=== PATIENT | male | born 1955 | race American Indian/Alaskan Native ===

== ENCOUNTER 2019-01-05 19:37 | Inpatient (IN) | payer MEDICARE, MEDICAID ==
[2019-01-05 19:48] VITALS: BMI 22.3
[2019-01-05] MEDS ORDERED: Sodium Chloride 0.9% 500 ML IV ONE (19:50)
[2019-01-05] MEDS ORDERED: Sodium Chloride 0.9% 1,000 ML IV ONE (19:51)
--- NOTE | 2019-01-05 19:56 | C.PDOC ---
History Of Present Illness 63 year old male sent in for abnormal blood work and increased BUN and creatinine. Denies pain, SOB, or complaints at this time. Time Seen by Provider: 01/05/19 19:53 Chief Complaint (Nursing): Abnormal Labs History Per: Patient History/Exam Limitations: no limitations Onset/Duration Of Symptoms: Hrs Current Symptoms Are (Timing): Still Present Recent travel outside of the [place]: No Past Medical History Reviewed: Historical Data, Nursing Documentation, Vital Signs Vital Signs: Last Vital Signs Temp 97.5 F L 01/05/19 19:45 Pulse 74 01/05/19 19:45 Resp 18 01/05/19 19:45 BP 104/39 L 01/05/19 19:45 Pulse Ox 100 01/05/19 19:45 Primary Care Provider: Arron Nathan - Medical History PMH: CHF, Depression, Diabetes, HTN, Chronic Kidney Disease, Schizophrenia Family History: States: Unknown Family Hx - Social History Hx Tobacco Use: No Hx Alcohol Use: No Hx Substance Use: No - Immunization History Hx Tetanus Toxoid Vaccination: No Hx Influenza Vaccination: No (unknown) Hx Pneumococcal Vaccination: No (unknown) Review Of Systems Constitutional: Negative for: Fever, Chills Cardiovascular: Negative for: Chest Pain, Palpitations Respiratory: Negative for: Cough, Shortness of Breath Gastrointestinal: Negative for: Nausea, Vomiting Neurological: Negative for: Weakness, Numbness Physical Exam - Physical Exam Appears: Non-toxic Skin: Normal Color, Warm Head: Atraumatic, Normacephalic Eye(s): bilateral: Other (Legally blind) Oral Mucosa: Dry Neck: Normal, Supple Chest: Symmetrical, No Tenderness Cardiovascular: Rhythm Regular Respiratory: Normal Breath Sounds, No Rales, No Rhonchi, No Wheezing Gastrointestinal/Abdominal: Soft, No Tenderness Extremity: No Pedal Edema Neurological/Psych: Oriented x3, Normal Speech, Other (Tremor to upper extremities) ED Course And Treatment - Laboratory Results Result Diagrams: 01/05/19 20:13 01/05/19 20:13 ECG: Interpreted By Me, Viewed By Me ECG Rhythm: Sinus Rhythm, 1st Degree HB ECG Interpretation: Normal, No Acute Changes Interpretation Of ECG: Sinus rhythm with 1st degree av block, otherwise normal tracings. Rate From EC O2 Sat by Pulse Oximetry: 100 (Room air) Pulse Ox Interpretation: Normal - Radiology CXR: Interpreted by Me, Viewed By Me CXR Interpretation: Yes: No Acute Disease. No: Infiltrates Progress Note: EKG, blood work, CXR, and urinalysis ordered. IV fluids administered. Disposition Discussed With : Arron Nathan Doctor Will See Patient In The: Hospital Counseled Patient/Family Regarding: Diagnosis - Disposition Disposition: HOSPITALIZED Disposition Time: 21:06 Condition: STABLE Forms: [employer] (Lebanese) - POA Present On Arrival: None - Clinical Impression Clinical Impression: Hyperkalemia, Renal failure - Scribe Statement The provider has reviewed the documentation as recorded by the Scribe Nicholas Ritchie All medical record entries made by the Scribe were at my direction and personally dictated by me. I have reviewed the chart and agree that the record accurately reflects my personal performance of the history, physical exam, medical decision making, and the department course for this patient. I have also personally directed, reviewed, and agree with the discharge instructions and disposition.
[2019-01-05 20:17] LABS: BASO % 0.7 % (0.0-2.0); EOS # 0.2 K/uL (0.0-0.7); EOS % 4.7 % (0.0-4.0); HEMOGLOBIN 8.5 g/dL (12.0-18.0); MEAN CELL VOLUME 84.2 fL (80.0-94.0); MEAN CORPUSCULAR HGB CONC 33.3 g/dL (33.0-37.0); MEAN PLATELET VOLUME 6.9 fL (7.2-11.7); MONO # 0.2 K/uL (0.0-0.8); MONO % 6.2 % (0.0-10.0); NEUT # 1.9 K/uL (1.8-7.0); NEUT % 57.4 % (50.0-75.0); NRBC % 0.1 % (0.0-2.0); RBC 3.05 Mil/uL (4.40-5.90); RED CELL DISTRIBUTION WIDTH 16.2 % (11.5-14.5); WHITE BLOOD COUNT 3.2 K/uL (4.8-10.8)
[2019-01-05 20:41] LABS: B-TYPE NATRIURETIC PEPTIDE 4100 pg/mL (0-900)
[2019-01-05 20:43] LABS: ALB/GLOB RATIO 1.2 (1.0-2.1); ALBUMIN 4.1 g/dL (3.5-5.0); ALT/SGPT 22 U/L (21-72); AST/SGOT 20 U/L (17-59); BLOOD UREA NITROGEN 91 mg/dL (9-20); CALCIUM 9.5 mg/dl (8.6-10.4); GFR NON-AFRICAN AMERICAN 12
[2019-01-05] MEDS ORDERED: Dextrose 50% SYRINGE Inj (50 ml) IVP STA (21:00)
[2019-01-05] MEDS ORDERED: Sodium Bicarbonate (8.4%) 50 Meq Syringe IVP ONE (21:01)
[2019-01-05] MEDS ORDERED: (Novolin R) Insulin Human Regular 100 units/ml vial IVP ONE (21:01)
[2019-01-05] MEDS ORDERED: Dextrose 50% SYRINGE Inj (50 ml) ONE (21:16)
[2019-01-05] MEDS ORDERED: Epoetin Alfa 10,000 unit/ml Dialysis SC ONE (21:17)
[2019-01-05] MEDS ORDERED: (Novolin R) Insulin Human Regular 100 units/ml vial ONE (21:17)
[2019-01-05] MEDS ORDERED: Sodium Bicarbonate (8.4%) 50 mEq Vial ONE (21:17)
[2019-01-05] MEDS ORDERED: SIMVASTATIN 20 MG PO SCH (22:00)
[2019-01-05 22:10] LABS: IRON 49 ug/dL (49-181)
[2019-01-05 22:19] LABS: % IRON SATURATION 19 (20-55); TOTAL IRON BINDING CAPACITY 252 ug/dL (250-450)
[2019-01-05] MEDS: Divalproex 500 mg ER Tab PO SCH (23:18)
[2019-01-06] MEDS ORDERED: Dextrose 50% SYRINGE Inj (50 ml) IV STA (06:24)
[2019-01-06 09:41] LABS: SQUAMOUS EPITHIAL < 1 /hpf (0-5); URINE BILIRUBIN NEGATIVE (NEGATIVE); URINE BLOOD NEGATIVE (NEGATIVE); URINE CLARITY Clear (Clear); URINE COLOR Yellow (YELLOW); URINE GLUCOSE (UA) NORMAL (Normal); URINE LEUKOCYTE ESTERASE NEG Leu/uL (Negative); URINE PROTEIN NEGATIVE (NEGATIVE); URINE UROBILINOGEN NORMAL mg/dL (0.2-1.0)
--- NOTE | 2019-01-06 09:54 | RAD ---
HISTORY: SOB COMPARISON: CT chest without contrast performed 12/05/15 TECHNIQUE: Chest, one view. FINDINGS: The patient's chin obscures evaluation of the lung apices. LUNGS: Mild venous congestion. Hazy left lower lobe infiltrate. Please note that chest x-ray has limited sensitivity for the detection of pulmonary masses. PLEURA: No significant pleural effusion identified. No definite pneumothorax . CARDIOVASCULAR: Cardiomegaly. Atherosclerotic calcifications present. OSSEOUS STRUCTURES: Degenerative changes. Osseous demineralization. VISUALIZED UPPER ABDOMEN: Unremarkable. OTHER FINDINGS: None. IMPRESSION: Mild venous congestion. Hazy left lower lobe infiltrate. Cardiomegaly.
[2019-01-06] MEDS ORDERED: Pneumococcal 23-Valent Vaccine IM ONE (10:00)
[2019-01-06] MEDS ORDERED: Metoprolol Succinate 200 mg XL Tab PO SCH (10:00)
[2019-01-06] MEDS: Ammonium Lactate 12% Lotion (225 g) EXT SCH ×2 (10:15→17:26)
[2019-01-06] MEDS: Cyproheptadine 2 mg Tab PO SCH ×2 (10:15→17:26)
[2019-01-06] MEDS: Multiple Vitamins Tab PO SCH (11:30)
[2019-01-06 18:24] VITALS: RESP 20
[2019-01-06] MEDS: Divalproex 500 mg ER Tab PO SCH (21:27)
--- NOTE | 2019-01-07 04:40 | CP.PCM.HP ---
Present on Admission - Present on Admission Any Indicators Present on Admission: No Past Patient History - Past Medical History & Family History Past Medical History?: Yes - Past Social History Smoking Status: Former Smoker - CARDIAC Hx Congestive Heart Failure: Yes Hx Hypertension: Yes - HEENT Hx HEENT Problems: Yes Hx Blind: Yes Hx Cataracts: Yes - RENAL Hx Chronic Kidney Disease: Yes - ENDOCRINE/METABOLIC Hx Endocrine Disorders: Yes Hx Diabetes Mellitus Type 2: Yes - MUSCULOSKELETAL/RHEUMATOLOGICAL Hx Falls: No - PSYCHIATRIC Hx Depression: Yes Hx Schizophrenia: Yes Hx Substance Use: No - SURGICAL HISTORY Hx Surgeries: No (unable to obtain) - ANESTHESIA Hx Anesthesia: No Meds Allergies/Adverse Reactions: Allergies Allergy/AdvReac Type Severity Reaction Status Date / Time No Known Allergies Allergy Verified 01/05/19 19:45 Results - Vital Signs Recent Vital Signs: Last Vital Signs Temp 98.7 F 01/06/19 23:25 Pulse 67 01/06/19 23:25 Resp 20 01/06/19 23:25 BP 125/72 01/06/19 23:25 Pulse Ox 98 01/06/19 23:25 - Labs Result Diagrams: 01/05/19 20:13 01/06/19 06:36 Labs: Laboratory Results - last 24 hr 01/05/19 01/06/19 01/06/19 21:46 05:52 05:56 Sodium Potassium Chloride Carbon Dioxide Anion Gap BUN Creatinine Est GFR ( Amer) Est GFR (Non-Af Amer) POC Glucose (mg/dL) 69 64 L Random Glucose Calcium Urine Color Urine Clarity Urine pH Ur Specific [place] Urine Protein Urine Glucose (UA) Urine Ketones Urine Blood Urine Nitrate Urine Bilirubin Urine Urobilinogen Ur Leukocyte Esterase Urine WBC (Auto) Urine RBC (Auto) Ur Squamous Epith Cells Ur Random Sodium Blood Type A POSITIVE Antibody Screen Negative 01/06/19 01/06/19 01/06/19 06:18 06:36 06:59 Sodium 140 Potassium 5.2 Chloride 108 H Carbon Dioxide 23 Anion Gap 13 BUN 82 H Creatinine 4.6 H Est GFR ( Amer) 16 Est GFR (Non-Af Amer) 13 POC Glucose (mg/dL) 67 180 H Random Glucose 64 L D Calcium 9.0 Urine Color Urine Clarity Urine pH Ur Specific [place] Urine Protein Urine Glucose (UA) Urine Ketones Urine Blood Urine Nitrate Urine Bilirubin Urine Urobilinogen Ur Leukocyte Esterase Urine WBC (Auto) Urine RBC (Auto) Ur Squamous Epith Cells Ur Random Sodium Blood Type Antibody Screen 01/06/19 01/06/19 01/06/19 09:01 09:01 10:59 Sodium Potassium Chloride Carbon Dioxide Anion Gap BUN Creatinine Est GFR ( Amer) Est GFR (Non-Af Amer) POC Glucose (mg/dL) 127 H Random Glucose Calcium Urine Color Yellow Urine Clarity Clear Urine pH 5.0 Ur Specific [place] 1.010 Urine Protein Negative Urine Glucose (UA) Normal Urine Ketones Negative Urine Blood Negative Urine Nitrate Negative Urine Bilirubin Negative Urine Urobilinogen Normal Ur Leukocyte Esterase Neg Urine WBC (Auto) < 1 Urine RBC (Auto) < 1 Ur Squamous Epith Cells < 1 Ur Random Sodium 61 Blood Type Antibody Screen
[2019-01-07 08:08] LABS: CALCIUM 9.4 mg/dl (8.6-10.4)
[2019-01-07 08:09] LABS: IRON 61 ug/dL (49-181)
[2019-01-07 08:37] LABS: % IRON SATURATION 25 (20-55); TOTAL IRON BINDING CAPACITY 247 ug/dL (250-450)
[2019-01-07 08:46] LABS: COMPLEMENT C4 23.1 mg/dL (14.0-44.0)
[2019-01-07 08:59] LABS: HEPATITIS B SURFACE AG Negative (NEGATIVE)
[2019-01-07 09:01] LABS: BASO % 0.8 % (0.0-2.0); EOS # 0.1 K/uL (0.0-0.7); EOS % 4.6 % (0.0-4.0); LYMPH # 0.8 K/uL (1.0-4.3); LYMPH % 25.9 % (20.0-40.0); MEAN CELL VOLUME 83.9 fL (80.0-94.0); MEAN CORPUSCULAR HEMOGLOBIN 28.9 pg (27.0-31.0); MEAN CORPUSCULAR HGB CONC 34.5 g/dL (33.0-37.0); MEAN PLATELET VOLUME 7.5 fL (7.2-11.7); MONO # 0.2 K/uL (0.0-0.8); MONO % 8.1 % (0.0-10.0); NEUT # 1.8 K/uL (1.8-7.0); NEUT % 60.6 % (50.0-75.0); RBC 3.65 Mil/uL (4.40-5.90); RED CELL DISTRIBUTION WIDTH 15.4 % (11.5-14.5); WHITE BLOOD COUNT 2.9 K/uL (4.8-10.8)
[2019-01-07 09:04] LABS: HEMOGLOBIN 10.5 g/dL (12.0-18.0)
[2019-01-07 09:05] LABS: HEPATITIS A IGM NEGATIVE (NEGATIVE); HEPATITIS B CORE AB NEGATIVE (NEGATIVE)
[2019-01-07] MEDS: Cyproheptadine 2 mg Tab PO SCH ×2 (09:07→17:54)
[2019-01-07] MEDS: Multiple Vitamins Tab PO SCH (09:08)
[2019-01-07] MEDS: Metoprolol Succinate 100 mg XL Tab PO SCH (09:08)
[2019-01-07] MEDS: Ammonium Lactate 12% Lotion (225 g) EXT SCH ×2 (09:08→17:54)
[2019-01-07 09:15] LABS: HEPATITIS C ANTIBODY NEGATIVE (NEGATIVE)
--- NOTE | 2019-01-07 11:20 | PN ---
DATE: 01/07/2019 LOCATION: 653, bed A. SUBJECTIVE: This is a 63-year-old male seen initially for GI consultation on 01/06/2019, reexamined again early in the morning today, claiming he has no complaint, no reported chest pain, palpitation or significant shortness of breath. However, intermittent period of nausea and dyspepsia was reported with recent change of bowel movement habit. The entire chart is reviewed including but not limited to most recent lab and radiology study results, current and previous medication list, current and previous medical events, and the patient reported refusing abdominal ultrasound, but subsequent drop of blood glucose level for which an amp of D50 was given as well as blood transfusion. Today's lab results showed increased hemoglobin to 10.5 with hematocrit 30.6 post blood transfusion, but white blood cells of 2.9 with normal platelet count, BUN is 79, creatinine 4.3, blood glucose level is still low at 70 with total iron binding capacity 247 as reported.. PHYSICAL EXAMINATION: GENERAL: A 63-year-old male awake, alert, appeared to be somewhat chahal. VITAL SIGNS: Afebrile with pulse of 66, respiratory rate 20-22, blood pressure of 160/66. HEENT: Showed pale, dry oral mucous membrane. Nonicteric sclerae. LUNGS: Few scattered crepitation. Decreased air entry at bases. HEART: Positive S1 and S2. ABDOMEN: Soft. Bowel sounds are present with slight generalized tenderness. No mass or organomegaly. No rebound tenderness or guarding. EXTREMITIES: Without significant clubbing, cyanosis or edema. RECTAL: The patient refused. No reported new neurological deficits, sensory or motor. No reported new focal deficits. IMPRESSION: 1. Anemia that could be secondary to chronic disease versus gastrointestinal blood loss, upper versus lower. 2. To rule out occult gastrointestinal malignancy. 3. Multiple past medical history including but not limited to hypertension, diabetes mellitus, renal disease, schizophrenia, depression. SUGGESTIONS: 1. Agree with your plan. 2. Cancer markers. 3. Sectional abdominal and pelvic CAT scan. 4. Antireflux measures. 5. On record, the patient is refusing any endoscopic evaluation of the gastrointestinal tract for now, that to be discussed with the primary MD. 6. Further recommendation to follow. Scarlett Mednes MD [facility] # [id number]
--- NOTE | 2019-01-07 12:30 | US ---
Date of service: 01/06/2019 PROCEDURE: Ultrasound of the Kidneys HISTORY: ckd COMPARISON: None available. TECHNIQUE: Sonogram of the kidneys. FINDINGS: RIGHT KIDNEY: Measures: 9.1 x 4.1 x 3.7 cm. No obstructing calculus or hydronephrosis identified. 1.9 x 1.7 x 1.8 cm midpole cyst. LEFT KIDNEY: Measures: 9.4 x 5.1 x 4.1 cm. No obstructing calculus or hydronephrosis identified. 0.9 x 0.8 x 1.1 cm and 1.0 x 0.7 x 0.8 cm upper pole cyst. 0.9 x 0.7 x 0.8 cm midpole cyst. OTHER FINDINGS: Incidental note is made of cholelithiasis. IMPRESSION: Bilateral renal cysts as above. Cholelithiasis.
--- NOTE | 2019-01-07 12:49 | HP ---
CHIEF COMPLAINT: Abnormal lab. HISTORY OF PRESENT ILLNESS: This is a 63-year-old -[place] male well known to me with history of CKD due to diabetic nephropathy, hypertension, hyperlipidemia and he has depression. The patient is noncompliant with his diet, medication, and followup. He [facility] a resident of [facility] for a long time and he is mostly uncooperative with [facility] staff for his activities of daily living, for his medications, for his workup. Mostly, he is in the bed and he refuses even his vital signs, his medications and recently, the patient agreed for blood work and his BUN/creatinine went up. His potassium went up to critically abnormal numbers and his hemoglobin dropped. There is no history of rectal bleeding, hematemesis, melena, hematochezia. There is no history of abdominal pain. The patient has poor visual acuity. He denies any dysuria, hematuria, pyuria. He denies any history of joint pain, hip pain. He has tingling and numbness in the feet. The patient is depressed. He is uncooperative. There is no history of skin rash, itchy eyes, itchy nose. There is no history of trauma, fall, or loss of consciousness. There is no history of seizure-like activity. PAST MEDICAL HISTORY: CKD, depression, hypertension, hyperlipidemia, type 2 diabetes. FAMILY HISTORY: Not obtainable. CURRENT MEDICATION: Toprol XL, multivitamin, Zocor, Protonix, Lexapro, hydralazine, Periactin, Depakote, Norvasc, Tylenol With Codeine, Abilify. PHYSICAL EXAMINATION: GENERAL: An elderly male, in no acute distress. He has poor visual acuity. VITAL SIGNS: Blood pressure 125/72, pulse 76, respiratory rate 20, temperature 98.7. SKIN: Disheveled. No bruise, no purpura, no petechiae, no ecchymosis. HEENT: Atraumatic, normocephalic. Negative pallor. Negative jaundice. Extraocular movements are intact. NECK: Supple. No JVD. No lymph node. No thyromegaly. CHEST WALL: Bilateral symmetrical expansion. LUNGS: Clear. No rales, no rhonchi. CARDIOVASCULAR: S1, S2 regular. No heave, no thrill. ABDOMEN: Soft, nontender. Bowel sounds are positive. EXTREMITIES: No clubbing, cyanosis or edema. CENTRAL NERVOUS SYSTEM: The patient is awake and alert. The patient is unable to see and he has poor hearing. Moves all extremities. ASSESSMENT: 1. Elevated BUN and creatine with high potassium. It is due to chronic kidney disease due to diabetic nephropathy. 2. Hypertension. 3. Type 2 diabetes. 4. Depression. PLAN: Admit. Detailed orders are written. Seen and examined. Arron Nathan MD
[2019-01-07] MEDS: Divalproex 500 mg ER Tab PO SCH (21:08)
--- NOTE | 2019-01-07 21:19 | CP.PCM.CON ---
History of Present Illness - History of Present Illness History of Present Illness: pt is seen and examined, full consult is dictated #[id number] Past Patient History - Past Medical History & Family History Past Medical History?: Yes - Past Social History Smoking Status: Former Smoker - CARDIAC Hx Congestive Heart Failure: Yes Hx Hypertension: Yes - HEENT Hx HEENT Problems: Yes Hx Blind: Yes Hx Cataracts: Yes - RENAL Hx Chronic Kidney Disease: Yes - ENDOCRINE/METABOLIC Hx Endocrine Disorders: Yes Hx Diabetes Mellitus Type 2: Yes - MUSCULOSKELETAL/RHEUMATOLOGICAL Hx Falls: No - PSYCHIATRIC Hx Depression: Yes Hx Schizophrenia: Yes Hx Substance Use: No - SURGICAL HISTORY Hx Surgeries: No (unable to obtain) - ANESTHESIA Hx Anesthesia: No Meds Allergies/Adverse Reactions: Allergies Allergy/AdvReac Type Severity Reaction Status Date / Time No Known Allergies Allergy Verified 01/05/19 19:45 - Medications Medications: Current Medications Aripiprazole (Abilify) 5 mg PO DAILY [facility] Last Admin: 01/07/19 09:07 Dose: 5 mg Cyproheptadine HCl (Periactin) 2 mg PO BID [facility] Last Admin: 01/07/19 17:54 Dose: Not Given Divalproex Sodium (Depakote Er) 500 mg PO HS [facility] Last Admin: 01/07/19 21:08 Dose: 500 mg Divalproex Sodium (Depakote Er) 250 mg PO DAILY [facility] Last Admin: 01/07/19 09:07 Dose: 250 mg Escitalopram Oxalate (Lexapro) 20 mg PO DAILY [facility] Last Admin: 01/07/19 09:07 Dose: 20 mg Hydralazine HCl (Apresoline) 50 mg PO TID [facility] Last Admin: 01/07/19 17:53 Dose: Not Given Lactic Acid (Lac-Hydrin 12% Lotion (225 G)) 1 gm EXT BID [facility] Last Admin: 01/07/19 17:54 Dose: Not Given Metoprolol Succinate (Toprol Xl) 200 mg PO DAILY [facility] Last Admin: 01/07/19 09:08 Dose: 200 mg Multivitamins (Hexavitamin) 1 tab PO DAILY [facility] Last Admin: 01/07/19 09:08 Dose: 1 tab Pantoprazole Sodium (Protonix Inj) 40 mg IVP DAILY [facility] Last Admin: 01/07/19 09:07 Dose: 40 mg Rosuvastatin Calcium (Crestor) 5 mg PO [facility] Last Admin: 01/07/19 21:08 Dose: 5 mg Results - Vital Signs Recent Vital Signs: Last Vital Signs Temp 98 F 01/07/19 07:00 Pulse 61 01/07/19 20:00 Resp 20 01/07/19 07:00 BP 164/69 H 01/07/19 07:00 Pulse Ox 97 01/07/19 12:24 - Labs Result Diagrams: 01/07/19 08:55 01/07/19 07:49 Labs: Laboratory Results - last 24 hr 01/06/19 01/07/19 01/07/19 10:59 07:49 07:49 WBC RBC Hgb Hct MCV MCH MCHC RDW Plt Count MPV Neut % (Auto) Lymph % (Auto) [place] % (Auto) Eos % (Auto) Baso % (Auto) Neut # (Auto) Lymph # (Auto) [place] # (Auto) Eos # (Auto) Baso # (Auto) Sodium Potassium Chloride Carbon Dioxide Anion Gap BUN Creatinine Est GFR ( Amer) Est GFR (Non-Af Amer) POC Glucose (mg/dL) 127 H Random Glucose Calcium Phosphorus Iron 61 TIBC 247 L % Saturation 25 Ferritin 141.0 Amylase Lipase Carcinoembryonic Ag CA 19-9 Antigen Prostate Specific Ag Vitamin B12 Complement C3 Complement C4 Hepatitis A IgM Ab Hep Bs Antigen Hep B Core IgM Ab Hepatitis C Antibody 01/07/19 01/07/19 01/07/19 07:49 07:49 07:49 WBC RBC Hgb Hct MCV MCH MCHC RDW Plt Count MPV Neut % (Auto) Lymph % (Auto) [place] % (Auto) Eos % (Auto) Baso % (Auto) Neut # (Auto) Lymph # (Auto) [place] # (Auto) Eos # (Auto) Baso # (Auto) Sodium 141 Potassium 4.8 Chloride 111 H Carbon Dioxide 23 Anion Gap 12 BUN 79 H Creatinine 4.3 H Est GFR ( Amer) 17 Est GFR (Non-Af Amer) 14 POC Glucose (mg/dL) Random Glucose 70 L Calcium 9.4 Phosphorus 4.3 Iron TIBC % Saturation Ferritin Amylase Lipase Carcinoembryonic Ag CA 19-9 Antigen Prostate Specific Ag Vitamin B12 908 Complement C3 66.0 L Complement C4 23.1 Hepatitis A IgM Ab Negative Hep Bs Antigen Negative Hep B Core IgM Ab Negative Hepatitis C Antibody Negative 01/07/19 01/07/19 08:55 12:59 WBC 2.9 L RBC 3.65 L Hgb 10.5 L D Hct 30.6 L MCV 83.9 MCH 28.9 MCHC 34.5 RDW 15.4 H Plt Count 130 MPV 7.5 Neut % (Auto) 60.6 Lymph % (Auto) 25.9 [place]ift % (Auto) 8.1 Eos % (Auto) 4.6 H Baso % (Auto) 0.8 Neut # (Auto) 1.8 Lymph # (Auto) 0.8 L T[place] # (Auto) 0.2 Eos # (Auto) 0.1 Baso # (Auto) 0.0 Sodium Potassium Chloride Carbon Dioxide Anion Gap BUN Creatinine Est GFR ( Amer) Est GFR (Non-Af Amer) POC Glucose (mg/dL) Random Glucose Calcium Phosphorus Iron TIBC % Saturation Ferritin Amylase 121 H Lipase 329 H Carcinoembryonic Ag 4.9 H CA 19-9 Antigen 36.4 Prostate Specific Ag 0.521 Vitamin B12 Complement C3 Complement C4 Hepatitis A IgM Ab Hep Bs Antigen Hep B Core IgM Ab Hepatitis C Antibody
--- NOTE | 2019-01-07 22:30 | CP.PCM.PN ---
Subjective - Date & Time of Evaluation Date of Evaluation: 01/07/19 Time of Evaluation: 08:20 - Subjective Subjective: dict Objective - Vital Signs/Intake and Output Vital Signs (last 24 hours): Temp Pulse Resp BP Pulse Ox 98 F 61 20 164/69 H 97 01/07/19 07:00 01/07/19 20:00 01/07/19 07:00 01/07/19 07:00 01/07/19 12:24 Intake and Output: 01/07/19 01/08/19 18:59 06:59 Intake Total 350 Output Total 300 Balance 50 - Medications Medications: Current Medications Aripiprazole (Abilify) 5 mg PO DAILY [facility] Last Admin: 01/07/19 09:07 Dose: 5 mg Cyproheptadine HCl (Periactin) 2 mg PO BID [facility] Last Admin: 01/07/19 17:54 Dose: Not Given Divalproex Sodium (Depakote Er) 500 mg PO [facility] Last Admin: 01/07/19 21:08 Dose: 500 mg Divalproex Sodium (Depakote Er) 250 mg PO DAILY [facility] Last Admin: 01/07/19 09:07 Dose: 250 mg Escitalopram Oxalate (Lexapro) 20 mg PO DAILY [facility] Last Admin: 01/07/19 09:07 Dose: 20 mg Hydralazine HCl (Apresoline) 50 mg PO TID [facility] Last Admin: 01/07/19 17:53 Dose: Not Given Lactic Acid (Lac-Hydrin 12% Lotion (225 G)) 1 gm EXT BID [facility] Last Admin: 01/07/19 17:54 Dose: Not Given Metoprolol Succinate (Toprol Xl) 200 mg PO DAILY [facility] Last Admin: 01/07/19 09:08 Dose: 200 mg Multivitamins (Hexavitamin) 1 tab PO DAILY [facility] Last Admin: 01/07/19 09:08 Dose: 1 tab Pantoprazole Sodium (Protonix Inj) 40 mg IVP DAILY [facility] Last Admin: 01/07/19 09:07 Dose: 40 mg Rosuvastatin Calcium (Crestor) 5 mg PO [facility] Last Admin: 01/07/19 21:08 Dose: 5 mg - Labs Labs: 01/07/19 08:55 01/07/19 07:49
--- NOTE | 2019-01-08 02:18 | PN ---
DATE: 01/07/2019 SUBJECTIVE: The patient is feeling better. He is afebrile. No shortness of breath. PHYSICAL EXAMINATION: VITAL SIGNS: Blood pressure 154/69, pulse 67, respiratory rate 20, temperature 99. LUNGS: Clear. CARDIOVASCULAR SYSTEM: S1 and S2, regular. ABDOMEN: Soft. ASSESSMENT: 1. Chronic kidney disease, status post hyperkalemia. 2. Anemia, due to chronic kidney disease. 3. Hypertension. PLAN: Medical management. Monitor the patient. Arron Nathan MD
--- NOTE | 2019-01-08 04:05 | CON ---
DATE: 01/07/2019 LOCATION: Room 653, bed A. REASON FOR RENAL CONSULTATION: Increased BUN and creatinine for further evaluation of anemia. REQUESTED BY: Dr. Arron Nathan. HISTORY OF PRESENT ILLNESS: Mr. Cash is a 63-year-old elderly -[place] male with a past medical history significant for longstanding hypertension, diabetes, depression, CHF, chronic kidney disease, schizophrenia and tremors, resident of longterm for long-time who was sent from the longterm for increasing BUN and creatinine and for further evaluation. The patient denies any chest pain or palpitation. Denies any nausea, vomiting, diarrhea. Denies any fever or cough. No abdominal pain. No dysuria or frequency. No swelling of the legs. PAST MEDICAL HISTORY: Significant for longstanding hypertension, diabetes, depression, CHF, chronic kidney disease, schizophrenia and legally blind and tremors. PAST SURGICAL HISTORY: Denies. ALLERGIES: NO KNOWN DRUG ALLERGIES. SOCIAL HISTORY: The patient denies any smoking, alcohol or drugs. PERSONAL HISTORY: Single. No children. Resident of longterm. FAMILY HISTORY: Not significant. HALF-WAY MEDICATIONS: Include as follows: Toprol XL 200 mg p.o. daily, Thera-Tab 1 tablet p.o. daily, simvastatin 20 mg p.o. at bedtime, Protonix 40 mg p.o. daily, escitalopram 20 mg p.o. daily, Lac-Hydrin lotion, also hydralazine 50 mg p.o. t.i.d., cyproheptadine 2 mg p.o. b.i.d. and Depakote ER 500 mg p.o. at bedtime and 250 mg p.o. daily, amlodipine 10 mg p.o. daily, Tylenol With Codeine, Abilify 5 mg p.o. daily. HOSPITAL MEDICATIONS: Include as follows: Abilify 5 mg p.o. daily, hydralazine 50 mg p.o. t.i.d., Crestor 5 mg p.o. at bedtime, Depakote ER 500 mg p.o. at bedtime and 250 mg of the morning, multivitamin 1 tablet daily, Lexapro 20 mg p.o. daily, Periactin 2 mg p.o. b.i.d., Protonix 40 mg IV daily, and metoprolol XL 20 mg p.o. daily. REVIEW OF SYSTEMS: Significant worsening renal function. All other review of systems are reviewed and are negative. PHYSICAL EXAMINATION: VITAL SIGNS: Blood pressure 164/69, pulse 67, respirations about 20, temperature is 98, height is 5 feet 11 inches, and weight is 140 pounds. GENERAL: Mr. Cash is a 63-year elderly -[place] male, legally blind, moderately built, moderately nourished, not in distress. HEENT: Conjunctivae slightly pale. Sclerae anicteric. Tongue is moist and trachea is midline. LUNGS: Symmetric on both sides. Bilateral breath sounds present. Clear to auscultation. CARDIOVASCULAR SYSTEM: [place] at the fifth intercostal space midclavicular area. S1 and S2 audible. No murmur or gallop. ABDOMEN: Normal in appearance. Soft, tympanic. No guarding. No rigidity. No hepatosplenomegaly. CENTRAL NERVOUS SYSTEM: The patient is alert, awake and oriented x2 to 3. Sensory and motor system is grossly within normal limits. Cranial nerves II through XII grossly intact except legally blind. EXTREMITIES: No cyanosis, no clubbing, no edema. The patient is moving all extremities. The patient also have tremors in both upper extremities. LABORATORY DATA: As of 01/05/2019, WBC 3.2, hemoglobin 8.5, hematocrit 25.6 and platelets 140. Sodium 140, potassium 6.2, chloride 105, CO of 22. BUN 91, creatinine 4.9 and GFR is about 14, glucose 105, calcium 9.5, iron 49, TIBC 252, saturation is 19 and total bili 0.3, AST 20, ALT 22, alkaline phosphatase 41. Troponin 0.012 and proBNP 4100, total protein 7.6, albumin is 4.1. Sodium 140, potassium 5.2, chloride 108, CO of 23, BUN 82, creatinine 4.6, glucose 180 and calcium 9. Urinalysis as of 01/06/2019, yellow, clear, pH 5, specific gravity 1010, protein negative, glucose negative, ketones negative, blood negative, nitrites negative, bilirubin negative, urobilinogen normal, leukocyte esterase negative, WBC less than 1, RBC less than 1, squamous epithelial less than 1. Urine lytes, urine sodium is 61 and complement levels C3 is 66 and C4 is 23.1. Hepatitis C antibody IgM is negative, hepatitis B surface antigen is negative, hepatitis B core antibody is negative, hepatitis C antibody is negative and B12 is . Other laboratory data, amylase as of 01/07/2019 of 121 and lipase is 329 and antigen is 4.9 and CA 19-9 is 36.4, and PSA is 0.52. The other laboratory data as of 01/07/2019, WBC 2.9, hemoglobin 10.5, hematocrit is 30.6 and platelets is 130. BUN and creatinine as of 01/07/2019, 79/4.3. Iron saturation repeat one is 25%, ferritin 141, iron 61, TIBC 247. Ultrasound of the kidneys as of 01/06/2019, right kidney is 9.1 x 4.1 x 3.7 cm and left kidney 9.4 x 5.1 x 4.1 cm. Right kidney, no obstructing calculus or hydronephrosis identified, 1.9 x 1.7 x 1.8 cm mid pole cyst. In the left kidney, no obstruction, calculus or hydronephrosis identified, 0.9 x 0.8 x 1.1 cm and also 1 x 0.7 x 0.8 cm upper pole cyst and also 0.9 x 0.9 x 0.8 cm mid pole cyst. Impression: Bilateral renal cyst. Incidental note is made of cholelithiasis. In summary, Mr. Cash is a 63-year-old elderly -[place] male with a history of longstanding hypertension, diabetes, depression, CHF, hyperlipidemia, tremors, chronic kidney disease, resident of longterm, legally blind, was sent from the longterm with increased BUN and creatinine and low H and H. 1. Renal failure, most likely acute on chronic kidney disease, cannot rule out progression of the chronic kidney disease. Etiology is not clear. Cannot rule out underlying hypertensive nephrosclerosis, doubt diabetic nephropathy in view of no protein in the urine, no blood in the urine. 2. Hypertension. Blood pressure is stable. Continue his current medications, hydralazine, amlodipine, and also metoprolol. 3. Diabetes. 4. Legally blind, rule out diabetic retinopathy versus hypertensive retinopathy. 5. Anemia, most likely secondary to renal failure. Continue multivitamins and we will add Epogen 10,000 units three times a week and we will follow up other serology workup, KHARI, ANCA, SPEP and SPEP, and also PTH intact level. Other serology was within normal limits including hepatitis profile. Continue gentle IV hydration, half normal saline at 70 mL per hour. We will follow with you. Thank you for allowing me to participate in your patient's care. Yvette Ludwig MD
[2019-01-08] MEDS: Multiple Vitamins Tab PO SCH (10:12)
[2019-01-08] MEDS: Cyproheptadine 2 mg Tab PO SCH ×2 (10:12→17:10)
[2019-01-08] MEDS: Ammonium Lactate 12% Lotion (225 g) EXT SCH ×2 (10:12→17:10)
[2019-01-08] MEDS: Metoprolol Succinate 100 mg XL Tab PO SCH (10:12)
--- NOTE | 2019-01-08 12:55 | CP.PCM.PN ---
Subjective - Date & Time of Evaluation Date of Evaluation: 01/08/19 Time of Evaluation: 12:54 - Subjective Subjective: pt is seen and examined, follow up consult is dictated #[id number] Objective - Vital Signs/Intake and Output Vital Signs (last 24 hours): Temp Pulse Resp BP Pulse Ox 98.8 F 64 20 107/58 L 96 01/08/19 07:00 01/08/19 10:11 01/08/19 07:00 01/08/19 10:11 01/08/19 07:00 Intake and Output: 01/08/19 01/08/19 06:59 18:59 Intake Total 350 Output Total 300 Balance 50 - Medications Medications: Current Medications Aripiprazole (Abilify) 5 mg PO DAILY [facility] Last Admin: 01/08/19 10:12 Dose: 5 mg Cyproheptadine HCl (Periactin) 2 mg PO BID [facility] Last Admin: 01/08/19 10:12 Dose: 2 mg Divalproex Sodium (Depakote Er) 500 mg PO HS [facility] Last Admin: 01/07/19 21:08 Dose: 500 mg Divalproex Sodium (Depakote Er) 250 mg PO DAILY [facility] Last Admin: 01/08/19 10:18 Dose: 250 mg Escitalopram Oxalate (Lexapro) 20 mg PO DAILY [facility] Last Admin: 01/08/19 10:12 Dose: 20 mg Hydralazine HCl (Apresoline) 50 mg PO TID [facility] Last Admin: 01/08/19 10:12 Dose: Not Given Lactic Acid (Lac-Hydrin 12% Lotion (225 G)) 1 gm EXT BID [facility] Last Admin: 01/08/19 10:12 Dose: Not Given Metoprolol Succinate (Toprol Xl) 200 mg PO DAILY [facility] Last Admin: 01/08/19 10:12 Dose: Not Given Multivitamins (Hexavitamin) 1 tab PO DAILY [facility] Last Admin: 01/08/19 10:12 Dose: 1 tab Pantoprazole Sodium (Protonix Inj) 40 mg IVP DAILY [facility] Last Admin: 01/08/19 10:12 Dose: 40 mg Rosuvastatin Calcium (Crestor) 5 mg PO HS [facility] Last Admin: 01/07/19 21:08 Dose: 5 mg - Labs Labs: 01/07/19 08:55 01/07/19 07:49
[2019-01-08] MEDS ORDERED: Sodium Chloride 0.45% 1,000 ML IV SCH (13:00)
--- NOTE | 2019-01-08 14:34 | PN ---
DATE: 01/08/2019 SUBJECTIVE: This is a 63-year-old male seen and examined in rounds early today without any significant clinical changes or reported active bleeding, seen by the Nephrology retirement consultant on the case due to his malfunction kidney. The entire chart is reviewed including but not limited to the most recent lab and radiology study results, current and the previous medication list, current and the previous medical events. Today's lab result is still pending, but reported to have yesterday elevated serum lipase and amylase level was elevated. CEA level to 4.9. No report of actual chest pain, palpitation. No significant shortness of breath or evidence of active GI bleeding despite the patient's subsequent drop of hemoglobin and hematocrit. PHYSICAL EXAMINATION: GENERAL: A 63-year-old male. VITAL SIGNS: Afebrile with pulse of 66, respiratory rate 20 to 22, and blood pressure 110/76. HEENT: Pale, dry oral mucous membrane. Nonicteric sclerae. LUNGS: Few scattered crepitation. Decreased air entry at bases. HEART: Positive S1 and S2. ABDOMEN: Soft with mild generalized tenderness. No mass or organomegaly. No rebound tenderness or guarding. RECTAL: The patient refused. EXTREMITIES: Slight lower extremity edematous changes. No clubbing or cyanosis. NEUROLOGIC: No reported new neurological deficits, sensory or motor. No reported new focal deficits. IMPRESSION: 1. Anemia, likely secondary to gastrointestinal blood loss, upper versus lower versus occult gastrointestinal malignancy. The possibility of anemia secondary to chronic disease including renal insufficiency with rest. 2. Acute pancreatitis with increased serum lipase and amylase level. 3. Elevated carcinoembryonic antigen level, to rule out lower gastrointestinal tract. 4. Multiple past medical history including but not limited to diabetic gastroparesis, poorly controlled diabetes mellitus, hypertension, renal failure. The patient is legally blind, most likely secondary diabetic retinopathy. SUGGESTIONS: 1. I agree with your plan. 2. Antireflux measures. 3. The patient will need endoscopic evaluation of the GI tract; however, the patient's so far refusing. 4. We will follow up closely with you and repeat serum lipase level at a.m. 5. Further recommendation to follow. Scarlett Mendes MD [facility] # [id number]
[2019-01-08 16:51] LABS: ALBUMIN (PEP) 3.6 g/dL (3.8-4.8); ALPHA-1-GLOBULIN (PEP) 0.2 g/dL (0.2-0.3)
--- NOTE | 2019-01-08 17:37 | CP.PCM.PN ---
Subjective - Date & Time of Evaluation Date of Evaluation: 01/08/19 Time of Evaluation: 11:40 - Subjective Subjective: Patient seen today . denies any abdominal pain, N/V/D potassium- WNL hgb- improved 10.5 Objective - Vital Signs/Intake and Output Vital Signs (last 24 hours): Temp Pulse Resp BP Pulse Ox 98.8 F 64 20 144/82 96 01/08/19 07:00 01/08/19 15:57 01/08/19 07:00 01/08/19 13:35 01/08/19 07:00 Intake and Output: 01/08/19 01/08/19 06:59 18:59 Intake Total 350 Output Total 300 Balance 50 - Medications Medications: Current Medications Aripiprazole (Abilify) 5 mg PO DAILY [facility] Last Admin: 01/08/19 10:12 Dose: 5 mg Cyproheptadine HCl (Periactin) 2 mg PO BID [facility] Last Admin: 01/08/19 17:10 Dose: Not Given Divalproex Sodium (Depakote Er) 500 mg PO HS [facility] Last Admin: 01/07/19 21:08 Dose: 500 mg Divalproex Sodium (Depakote Er) 250 mg PO DAILY [facility] Last Admin: 01/08/19 10:18 Dose: 250 mg Escitalopram Oxalate (Lexapro) 20 mg PO DAILY [facility] Last Admin: 01/08/19 10:12 Dose: 20 mg Hydralazine HCl (Apresoline) 50 mg PO TID [facility] Last Admin: 01/08/19 17:10 Dose: Not Given Sodium Chloride (Sodium Chloride 0.45%) 1,000 mls @ 70 mls/hr IV .[id number] [facility] Stop: 01/09/19 13:01 Last Admin: 01/08/19 13:41 Dose: 70 mls/hr Lactic Acid (Lac-Hydrin 12% Lotion (225 G)) 1 gm EXT BID [facility] Last Admin: 01/08/19 17:10 Dose: Not Given Metoprolol Succinate (Toprol Xl) 200 mg PO DAILY [facility] Last Admin: 01/08/19 10:12 Dose: Not Given Multivitamins (Hexavitamin) 1 tab PO DAILY [facility] Last Admin: 01/08/19 10:12 Dose: 1 tab Pantoprazole Sodium (Protonix Inj) 40 mg IVP DAILY [facility] Last Admin: 01/08/19 10:12 Dose: 40 mg Rosuvastatin Calcium (Crestor) 5 mg PO HS [facility] Last Admin: 01/07/19 21:08 Dose: 5 mg - Labs Labs: 01/07/19 08:55 01/07/19 07:49 Assessment and Plan - Assessment and Plan (Free Text) Assessment: A/P 63 yr old male with pmhx of CHF, Depression, Diabetes, HTN, Chronic Kidney Disease, Schizophrenia sent to [facility] ED from [facility] for abnormal labs ( inc cr) s/p prbc TRANSFUSION AND HGB - IMPROVED Cr- stable Dr. Steel consulted fro GI an dpat refused endoscopic evalautions D/w Dr. Nathan, cleared fro discharge back to [facility] today and Dr. Nathan will follow the patient at [facility] will repeat blood work on
[2019-01-08 17:38] VITALS: BP 126/54; TEMP 98.3; O2SAT 99
[2019-01-08 20:05] VITALS: PULSE 68
[2019-01-08] MEDS: Divalproex 500 mg ER Tab PO SCH (21:06)
--- NOTE | 2019-01-08 23:55 | CP.PCM.DIS ---
Provider - Provider Date of Admission: 01/06/19 15:55 Attending physician: Arron Nathan MD Consults: 01/06/19 01:08 Nephrology Consult Routine Comment: Consulting Provider: Yvette Ludwig Consulting Physician: Yvette Ludwig Reason for Consult: ckd 01/06/19 06:00 Gastroenterology Consult Routine Comment: Consulting Provider: Scarlett Steel Consulting Physician: Scarlett Steel Reason for Consult: r/o GI BLEED Hematology Oncology Consult Routine Comment: Consulting Provider: Mara Gomez Consulting Physician: Mara Gomez Reason for Consult: Anemia Time Spent in preparation of Discharge (in minutes): 45 Hospital Course - Lab Results Lab Results: Most Recent Lab Values WBC 2.9 K/uL (4.8-10.8) L 01/07/19 08:55 RBC 3.65 Mil/uL (4.40-5.90) L 01/07/19 08:55 Hgb 10.5 g/dL (12.0-18.0) L D 01/07/19 08:55 Hct 30.6 % (35.0-51.0) L 01/07/19 08:55 MCV 83.9 fL (80.0-94.0) 01/07/19 08:55 MCH 28.9 pg (27.0-31.0) 01/07/19 08:55 MCHC 34.5 g/dL (33.0-37.0) 01/07/19 08:55 RDW 15.4 % (11.5-14.5) H 01/07/19 08:55 Plt Count 130 K/uL (130-400) 01/07/19 08:55 MPV 7.5 fL (7.2-11.7) 01/07/19 08:55 Neut % (Auto) 60.6 % (50.0-75.0) 01/07/19 08:55 Lymph % (Auto) 25.9 % (20.0-40.0) 01/07/19 08:55 [place] % (Auto) 8.1 % (0.0-10.0) 01/07/19 08:55 Eos % (Auto) 4.6 % (0.0-4.0) H 01/07/19 08:55 Baso % (Auto) 0.8 % (0.0-2.0) 01/07/19 08:55 Neut # (Auto) 1.8 K/uL (1.8-7.0) 01/07/19 08:55 Lymph # (Auto) 0.8 K/uL (1.0-4.3) L 01/07/19 08:55 [place] # (Auto) 0.2 K/uL (0.0-0.8) 01/07/19 08:55 Eos # (Auto) 0.1 K/uL (0.0-0.7) 01/07/19 08:55 Baso # (Auto) 0.0 K/uL (0.0-0.2) 01/07/19 08:55 Retic Count 1.1 % (0.5-1.5) 01/05/19 21:46 Sodium 141 mmol/L (132-148) 01/07/19 07:49 Potassium 4.8 mmol/L (3.6-5.2) 01/07/19 07:49 Chloride 111 mmol/L (98-107) H 01/07/19 07:49 Carbon Dioxide 23 mmol/L (22-30) 01/07/19 07:49 Anion Gap 12 (10-20) 01/07/19 07:49 BUN 79 mg/dL (9-20) H 01/07/19 07:49 Creatinine 4.3 mg/dL (0.8-1.5) H 01/07/19 07:49 Est GFR ( Amer) 17 01/07/19 07:49 Est GFR (Non-Af Amer) 14 01/07/19 07:49 POC Glucose (mg/dL) 127 mg/dL (65-110) H 01/06/19 10:59 Random Glucose 70 mg/dL (75-110) L 01/07/19 07:49 Calcium 9.4 mg/dl (8.6-10.4) 01/07/19 07:49 Phosphorus 4.3 mg/dL (2.5-4.5) 01/07/19 07:49 Iron 61 ug/dL (49-181) 01/07/19 07:49 TIBC 247 ug/dL (250-450) L 01/07/19 07:49 % Saturation 25 (20-55) 01/07/19 07:49 Ferritin 141.0 ng/mL 01/07/19 07:49 Total Bilirubin 0.3 mg/dL (0.2-1.3) 01/05/19 20:13 AST 20 U/L (17-59) 01/05/19 20:13 ALT 22 U/L (21-72) 01/05/19 20:13 Alkaline Phosphatase 41 U/L (38-126) 01/05/19 20:13 Troponin I < 0.0120 ng/mL (0.00-0.120) 01/05/19 20:13 NT-Pro-B Natriuret Pep 4100 pg/mL (0-900) H 01/05/19 20:13 Total Protein 7.6 g/dL (6.3-8.3) 01/05/19 20:13 Total Protein (PEP) 6.5 g/dL (6.1-8.1) 01/07/19 07:49 Albumin 4.1 g/dL (3.5-5.0) 01/05/19 20:13 Albumin (PEP) 3.6 g/dL (3.8-4.8) L 01/07/19 07:49 Globulin 3.5 gm/dL (2.2-3.9) 01/05/19 20:13 Albumin/Globulin Ratio 1.2 (1.0-2.1) 01/05/19 20:13 Qgumc-0-Evrjjbxgz 0.2 g/dL (0.2-0.3) 01/07/19 07:49 Uryei-7-Jfysmkkrv 0.5 g/dL (0.5-0.9) 01/07/19 07:49 Ilzy-1-Bbzaguux 0.4 g/dL (0.4-0.6) 01/07/19 07:49 Qpjk-8-Uudjfkuv 0.4 g/dL (0.2-0.5) 01/07/19 07:49 Gamma Globulins 1.4 g/dL (0.8-1.7) 01/07/19 07:49 Abnorm Protein Band 1 TEST NOT PERFORMED 01/07/19 07:49 Abnorm Protein Band 2 TEST NOT PERFORMED 01/07/19 07:49 Abnorm Protein Band 3 TEST NOT PERFORMED 01/07/19 07:49 Amylase 121 U/L (30-110) H 01/07/19 12:59 Lipase 329 U/L (23-300) H 01/07/19 12:59 Carcinoembryonic Ag 4.9 ng/mL (0-3.0) H 01/07/19 12:59 CA 19-9 Antigen 36.4 U/mL (0-37) 01/07/19 12:59 Prostate Specific Ag 0.521 ng/mL (0.00-4.0) 01/07/19 12:59 Vitamin B12 908 pg/mL (239-931) 01/07/19 07:49 PTH Intact Whole Molec 92 pg/mL (14-64) H 01/07/19 07:49 Urine Color Yellow (YELLOW) 01/06/19 09:01 Urine Clarity Clear (Clear) 01/06/19 09:01 Urine pH 5.0 (5.0-8.0) 01/06/19 09:01 Ur Specific [place] 1.010 (1.003-1.030) 01/06/19 09:01 Urine Protein Negative mg/dL (NEGATIVE) 01/06/19 09:01 Urine Glucose (UA) Normal mg/dL (Normal) 01/06/19 09:01 Urine Ketones Negative mg/dL (NEGATIVE) 01/06/19 09:01 Urine Blood Negative (NEGATIVE) 01/06/19 09:01 Urine Nitrate Negative (NEGATIVE) 01/06/19 09:01 Urine Bilirubin Negative (NEGATIVE) 01/06/19 09:01 Urine Urobilinogen Normal mg/dL (0.2-1.0) 01/06/19 09:01 Ur Leukocyte Esterase Neg Fei/uL (Negative) 01/06/19 09:01 Urine WBC (Auto) < 1 /hpf (0-5) 01/06/19 09:01 Urine RBC (Auto) < 1 /hpf (0-3) 01/06/19 09:01 Ur Squamous Epith Cells < 1 /hpf (0-5) 01/06/19 09:01 Ur Random Sodium 61 mmol/L 01/06/19 09:01 Stool Occult Blood Negative (NEGATIVE) 01/08/19 14:24 PUSHPA & SPEP Interp See note 01/07/19 07:49 Complement C3 66.0 mg/dL (88.0-165.0) L 01/07/19 07:49 Complement C4 23.1 mg/dL (14.0-44.0) 01/07/19 07:49 Hepatitis A IgM Ab Negative (NEGATIVE) 01/07/19 07:49 Hep Bs Antigen Negative (NEGATIVE) 01/07/19 07:49 Hep B Core IgM Ab Negative (NEGATIVE) 01/07/19 07:49 Hepatitis C Antibody Negative (NEGATIVE) 01/07/19 07:49 Blood Type A POSITIVE 01/05/19 21:46 Antibody Screen Negative 01/05/19 21:46 Discharge Plan - Follow Up Plan Condition: STABLE Disposition: HOME/ ROUTINE Instructions: Heart Failure, Adult (DC), Kidney Failure (DC), Renal Failure Diet (DC), Hyperkalemia (DC), Hyperkalemia (GEN) Additional Instructions: Please call Dr. Nathan upon patient arrival to the facility Please repeat cbc, bmp then as per Dr. Nathan Please encourage po fluids - ( force fluid intake at leat 2 lit /day) Please resume all medications Referrals: Arron Nathan MD [Staff Provider] -
--- NOTE | 2019-01-09 03:45 | PN ---
DATE: 01/08/2019 FOLLOWUP RENAL CONSULTATION LOCATION: The patient is located in room 653, bed A. REQUESTED BY: Arron Nathan MD REASON FOR FOLLOWUP: CKD 5 and for further evaluation. SUBJECTIVE: Mr. Cash is a 63-year-old elderly male with a past medical history significant for hypertension, diabetes, depression, CHF, CKD, questionable schizophrenia, resident of a fdc who was admitted with worsening renal function and abnormal labs. The patient was found to have a creatinine about 5.1 on first week of 12/2018 and repeat one was about 4.8, and subsequently the patient was referred to the hospital for evaluation of anemia and renal failure. He is status post transfusion of packed RBC, and H and H improved. Hemoglobin 10.5 as of 01/07/2019. The patient denies any complaints. No chest pain. No palpitation. No fever. No cough. The patient is legally blind. PHYSICAL EXAMINATION: VITAL SIGNS: As follows: Blood pressure this morning 107/58, pulse 64, respirations about 20, temperature 98.3, and saturation 99%. Height 5 feet 11 inches. Weight is 140 pounds. GENERAL: Mr. Cash is a 63-year-old elderly male, moderately built, moderately nourished, not in distress. HEENT: The patient is legally blind. Conjunctivae pink. Sclerae anicteric. Tongue is moist and trachea is midline. LUNGS: Symmetric on both sides. Bilateral breath sounds present. Clear to auscultation. CARDIOVASCULAR SYSTEM: [place] at the fifth intercostal space, midclavicular line. S1 and S2 audible. No murmur or gallop. ABDOMEN: Normal in appearance. Soft, tympanitic. No guarding. No rigidity. No hepatosplenomegaly. CENTRAL NERVOUS SYSTEM: The patient is alert, awake, oriented x2 to 3. Sensory and motor system is within normal limits. The patient is legally blind. EXTREMITIES: No cyanosis. No clubbing. No edema. CURRENT MEDICATIONS: Include as follows: Abilify 5 mg p.o. daily, Periactin 2 mg p.o. b.i.d., Depakote ER 500 mg at bedtime and 250 mg p.o. daily, Lexapro 20 mg p.o. daily, hydralazine 50 mg p.o. t.i.d., Lac-Hydrin lotion, metoprolol XL 200 mg p.o. daily, multivitamin one tablet daily, Protonix 40 mg IV daily, and Crestor 5 mg at bedtime. LABORATORY DATA: Other laboratory data as of 01/07/2019: WBC 2.9, hemoglobin 10.5, hematocrit is 30.6, platelets 130. His other laboratory data as of 01/07/2019, sodium 141, potassium 4.8, chloride of 111, CO2 of 23, BUN 79, creatinine 4.3, glucose 70, calcium 9.4, phosphorus 4.3. Iron 61, TIBC 247, iron saturation 25, ferritin 141. Total protein 6.5, albumin is 3.6. As of 01/07/2019, amylase is 121, lipase is 329. CA19-9 is 36.4 and CEA is 4.9. PSA is 0.52. B12 is 908. PTH is 92. Stool for occult blood is negative. C3 is 66. C4 is 23.1. Hepatitis B surface antigen is negative. Hepatitis B core antibody is negative. Hepatitis C antibody is negative. KHARI is pending. Hepatitis C antibody IgM is negative. Serum protein electrophoresis is negative, reveals isolated decrease in albumin. This pattern is suggestive of decreased protein synthesis or protein loss. ASSESSMENT AND PLAN: In summary, Mr. Cash is a 63-year elderly male with a history of hypertension, diabetes, congestive heart failure, depression, questionable schizophrenia, chronic kidney disease who was admitted with low hemoglobin and hematocrit and increased blood urea nitrogen and creatinine. 1. Renal failure, acute on chronic kidney disease versus chronic kidney disease 4. 2. Anemia secondary to renal failure. 3. Hypertension. 4. Legally blind. 5. Diabetes. 6. Secondary hyperparathyroidism. Parathyroid hormone is within normal range. For chronic kidney disease 4, we will continue his current medications. We will consider Nephro-Jonny one tablet by mouth daily and Procrit to keep hemoglobin less than 11 and more than 10. We will follow with you. Thank you for allowing me to participate in your patient's care. Yvette Ludwig MD
--- NOTE | 2019-01-09 05:07 | CON ---
DATE: 01/06/2019 LOCATION: 653, bed A. This is a 63-year-old male, seen initially for GI consultation as requested by the admitting medical team and the admitting MD on 01/06/2019. A short handwritten consultation sheet left in the chart at the time of my GI consultation. The entire chart is reviewed including but not limited to the most recent lab and radiology study results, current and the previous medication lists, current and the previous medical events, allergy to medication list as well as all the available current and the previous medical records. Case discussed with the staff at length at the time of my GI consultation on 01/06/2019. HISTORY OF PRESENT ILLNESS: This is a 63-year-old male who was admitted to the hospital due to abnormal renal function tests by blood testing with intermittent period of mild abdominal pain, nausea, dyspepsia at the time of my GI consultation. No reported actual chest pain, palpitation, significant shortness of breath, chills or fever, but generalized weakness and malaise with loss of appetite recently. PAST MEDICAL HISTORY: Including but not limited to, 1. Poorly controlled diabetes mellitus. 2. Depression. 3. Hypertension with congestive heart failure and reported schizophrenia. 4. Chronic renal disorder. SOCIAL HISTORY: No reported recent history of cigarette smoking or alcohol intake. CURRENT MEDICATIONS: Medication list post-admission is reviewed. ALLERGY TO MEDICATION: UNKNOWN. FAMILY HISTORY: Noncontributory. Initial blood workup at the time of admission showed hemoglobin of 8.5, hematocrit 25.6 with normal platelet count with sodium 140, potassium 6.2, BUN of 91, creatinine 4.9. Initial chest x-ray at the time of admission showed evidence of mild venous congestion and cardiomegaly. PHYSICAL EXAMINATION: GENERAL: A 63-year-old male, appeared to be awake, alert and oriented with a complaint of midepigastric pain and periods of nausea, dyspepsia as well as loss of appetite. VITAL SIGNS: The patient is afebrile with pulse of 70, respiratory rate 20 to 22, blood pressure 132/74. HEENT: Showed pale, dry oral mucous membranes, nonicteric sclerae. LYMPH NODES: No lymphadenitis or lymphadenopathy. LUNGS: Few scattered crepitation. Decreased air entry at bases. HEART: Positive S1 and S2. ABDOMEN: Soft with mild generalized tenderness. No mass or organomegaly. No rebound tenderness or guarding. EXTREMITIES: With evidence of mild muscle wasting syndrome of the lower extremities but without clubbing, cyanosis, or significant edematous changes. NEUROLOGIC: No reported new neurological deficits, sensory or motor. No reported new focal deficits. IMPRESSION: 1. Anemia that could be secondary to chronic disease versus gastrointestinal blood loss, upper versus lower. 2. To rule out occult gastrointestinal malignancy. 3. Multiple past medical history including but not limited to, as mentioned above, hypertension, diabetes mellitus, depression, with mild congestive heart failure. 4. To rule out acute pancreatitis. 5. Known history of renal failure. 6. Known history of diabetic gastroparesis. SUGGESTIONS: 1. Continue current management. 2. Cancer markers. 3. Guaiac all the stools daily x3. 4. Proton pump inhibitors. 5. The patient may need endoscopic evaluation of the GI tract depending on his clinical stability. 6. Blood transfusion to keep hemoglobin around 10 g%. 7. Iron study. 8. B12 and folate levels. 9. Further recommendation to follow. Thank you for letting me to participate in your patient's case management. Scarlett Mendes MD
--- NOTE | 2019-01-09 07:01 | DS ---
ADMISSION DIAGNOSIS: Chronic kidney disease. DISCHARGE DIAGNOSES: 1. Chronic kidney disease. 2. Hyperkalemia. 3. Anemia of chronic kidney disease. 4. Type 2 diabetes. HISTORY OF PRESENT ILLNESS: This is a 63-year-old -[place] male with history of diabetes, hypertension, depression, CKD, who came in with hyperkalemia, elevated BUN and creatinine. He was admitted to the floor, started on IV fluids. History of multiple blood transfusions and he did well and the patient was seen by renal, given IV fluids. Workup was started. The patient is being [facility]. Condition upon discharge is stable. PHYSICAL EXAMINATION: VITAL SIGNS: Blood pressure 126/54, pulse 63, respiratory rate 20, temperature 98.3. PLAN: Discharge patient. Outpatient followup. CONDITION UPON DISCHARGE: Stable. Arron Nathan MD
--- NOTE | 2019-01-09 21:15 | CARD ---
APPROVED REPORT Date of service: 01/05/2019 EKG Measurement Heart [id number] <Conclusion> Sinus rhythm with 1st degree AV block Otherwise normal ECG
== END 2019-01-08 22:05 | disposition home or self-care (01) | DRG 682 ==
LOC: C.ER 19:37 → C.6T 21:07 → OBSVTOIN 01-06 15:55
PROVIDERS: ADMIT Internal Medicine; ATTEND Internal Medicine
PROC: 30243N1 Transfusion of Nonautologous Red Blood Cells into Central Vein, Percutaneous Approach (ICD-10-PCS; principal; 2019-01-05)
DX: N17.9 Acute kidney failure, unspecified (principal); K85.90 Acute pancreatitis without necrosis or infection, unspecified; I13.0 Hypertensive heart and chronic kidney disease with heart failure and stage 1 through stage 4 chronic kidney disease, or unspecified chronic kidney disease; D63.1 Anemia in chronic kidney disease; E11.21 Type 2 diabetes mellitus with diabetic nephropathy; E11.22 Type 2 diabetes mellitus with diabetic chronic kidney disease; E11.319 Type 2 diabetes mellitus with unspecified diabetic retinopathy without macular edema; E78.5 Hyperlipidemia, unspecified; E87.5 Hyperkalemia; F20.9 Schizophrenia, unspecified; F32.9 Major depressive disorder, single episode, unspecified; I50.9 Heart failure, unspecified; H54.8 Legal blindness, as defined in USA; Z91.11 Patient's noncompliance with dietary regimen; R97.0 Elevated carcinoembryonic antigen [CEA]; Z87.891 Personal history of nicotine dependence; N18.4 Chronic kidney disease, stage 4 (severe); E11.43 Type 2 diabetes mellitus with diabetic autonomic (poly)neuropathy; K31.84 Gastroparesis; D50.0 Iron deficiency anemia secondary to blood loss (chronic)